=== PATIENT | male | born 1990 | race Caucasian/White ===

== ENCOUNTER 2024-03-01 05:09 | Emergency (ER) | payer SELFPAY ==
[2024-03-01 05:27] VITALS: TEMP 97.8; BMI 25.8
[2024-03-01] MEDS: SODIUM CHLORIDE 1,000 ML IV ONE (05:27)
[2024-03-01] MEDS ORDERED: morphine SULFATE 4 MG/ML VIAL ONE (05:31)
[2024-03-01] MEDS: morphine CARPU-JECT 4 MG/1 ML DISP.SYRIN IVPUSH ONE (05:35)
[2024-03-01] MEDS: HYOSCYAMINE SULFATE 0.125 MG *ODT PO ONE (06:14)
[2024-03-01 06:53] VITALS: BP 131/79; RESP 16
[2024-03-01 07:15] LABS: HEMATOCRIT 47.6 % (35.4-49); HEMOGLOBIN 16.4 GM/dL (11.7-16.9); MCH 30.1 pg (25.7-33.7); MCHC 34.5 g/dl (32.0-35.9); MEAN CELL VOLUME 87.2 fl (80-96); MEAN PLT VOLUME 8.6 fl (7.5-11.1); PLATELET COUNT 234 10^3/uL (134-434); RBC 5.46 M/mm3 (4.00-5.60); RDW 12.8 % (11.9-15.9); WHITE BLOOD COUNT 12.5 K/mm3 (4.0-10.0)
[2024-03-01 07:43] LABS: ALBUMIN 4.2 g/dl (3.4-5.0); BILIRUBIN,TOTAL 0.5 mg/dL (0.2-1); CALCIUM 9.1 mg/dL (8.5-10.1); CREATININE 1.4 mg/dL (0.55-1.3); POTASSIUM 3.8 mmol/L (3.5-5.1); TOT PROT 7.6 g/dl (6.4-8.2)
[2024-03-01 08:36] LABS: EPITHELIAL CELLS 0-5 /hpf
[2024-03-01 09:55] VITALS: PULSE 92
== END 2024-03-01 09:55 | disposition home or self-care (01) ==
LOC: FER 05:09
PROC: 3E033NZ Introduction of Analgesics, Hypnotics, Sedatives into Peripheral Vein, Percutaneous Approach (ICD-10-PCS; principal; 2024-03-01)
PROC: 3E0337Z Introduction of Electrolytic and Water Balance Substance into Peripheral Vein, Percutaneous Approach (ICD-10-PCS; 2024-03-01)
DX: R10.32 Left lower quadrant pain (principal); N20.0 Calculus of kidney
CPT/HCPCS: 36415; 74176-TC; 74190-TC-FY; 80053; 81003; 81015; 85027; 99285-25